=== PATIENT | female | born 1990 | race Hispanic/Latino ===

== ENCOUNTER 2017-07-15 07:07 | Day surgery (SDC) | payer OTHER ==
[2017-07-08 13:31] VITALS: BMI 22.4
[2017-07-15 08:18] LABS: MEAN CELL VOLUME 91.8 fl (81.0-99.0); MEAN CORPUSCULAR HEMOGLOBIN 29.9 pg (27.0-31.0); MEAN CORPUSCULAR HGB CONC 32.6 g/dL (33.0-37.0); RBC 4.36 Mil/uL (3.80-5.20); WHITE BLOOD COUNT 6.9 K/uL (4.8-10.8)
[2017-07-15] MEDS ORDERED: Ferric Subsulfate Sol(60 mL) ONE (08:34)
[2017-07-15] MEDS ORDERED: Propofol 10 mg/ml Inj (20 ML) ONE (08:34)
[2017-07-15] MEDS ORDERED: Midazolam 2 MG/2 ML VIAL ONE (08:34)
[2017-07-15] MEDS ORDERED: Succinylcholine 200 mg/10 ml Inj IV ONE (08:35)
[2017-07-15] MEDS ORDERED: Lactated Ringer's 1,000 ML IV ONE ×2 (09:25→11:05)
[2017-07-15] MEDS ORDERED: Dexamethasone 4 mg/1 ml ONE (09:49)
--- NOTE | 2017-07-15 09:59 | HP ---
HISTORY OF PRESENT ILLNESS: This is a 27-year-old G0 who reports that she has had the Janet placed in 07/2016 and usually has monthly periods with the Janet; however, has been bleeding for about 2 months straight, bleeding started 05/02/2017. Reports that the bleeding stopped for a few days and then she started bleeding again on 07/12/2017. The patient reports bad cramps with the periods with the Janet. The patient would like the Jnaet removed and LILETTA placed. The Janet could not be removed in the office. The IUD string was not seen and the patient was very uncomfortable during the attempts of trying to remove the Janet in the office, so the patient is scheduled today for Janet to be removed, a hysteroscopy to evaluate the lining of the uterus, and LILETTA placement. PAST MEDICAL HISTORY: Healthy. MEDICATIONS: Janet since 07/2016. PAST SURGICAL HISTORY: None. FAMILY HISTORY: Father , was diagnosed with hypertension. Maternal grandmother with ovarian cancer. Maternal great aunt x3 with ovarian cancer. SOCIAL HISTORY: The patient denies smoking. She reports she drinks 1-2 drinks a few times a week and denies illicit drug use. History of monthly periods. The patient reports an abnormal Pap smear in 07/2014 with positive HPV. She had a colpo, which was okay per the patient. In 07/2015, the patient's Pap was negative. The patient denies any STDs and reports that the Janet was placed on 08/12/2016. ALLERGIES: CEFZIL CAUSES HIVES. PHYSICAL EXAMINATION: VITAL SIGNS: Afebrile and vital signs are stable. GENERAL: The patient appears comfortable. ABDOMEN: Soft and nontender. In the office, her speculum exam revealed that the IUD strings were not visible. ASSESSMENT AND PLAN: This is a 27-year-old G0 with irregular bleeding with the Janet and would like the Janet removed. The Janet was not able to be removed in the office and so the patient is scheduled today for the Janet to be removed, hysteroscopy to evaluate the uterine lining, and LILETTA placement. Joanie Wood MD [facility] # [id number]
[2017-07-15] MEDS ORDERED: Oxycodone/Acetaminophen 5/325 mg Tab PO PRN (10:41)
[2017-07-15 11:03] VITALS: RESP 18
[2017-07-15 13:25] VITALS: BP 113/70; PULSE 68; TEMP 97.8; O2SAT 100
--- NOTE | 2017-07-15 14:19 | OP ---
PROCEDURE DATE: 07/15/2017 PREOPERATIVE DIAGNOSIS: This is a 27-year-old G0 with irregular bleeding with Janet in place. POSTOPERATIVE DIAGNOSIS: Endometrial polyps. PROCEDURE: Cervical dilation, hysteroscopic polypectomy with MyoSure LITE and LILETTA insertion. OPERATIVE FINDINGS: An anteverted uterus sounded to 7 cm. On hysteroscopy, both ostia were visualized and two polyps were seen in the lower uterine segment of the uterus, one on the right side coming from the anterior wall and the other on the left side from posterior/ lateral wall. SURGEON: Joanie Wood MD TYPE OF ANESTHESIA: General anesthesia with LMA. ANESTHESIA ADMINISTERED BY: Dr. Oh. COMPLICATIONS: None. DEFICIT: 700 mL. ESTIMATED BLOOD LOSS: Minimal. DESCRIPTION OF PROCEDURE: The patient was taken to the operating room with IV running and was placed under general anesthesia with LMA. A time-out was done. She was then prepped and draped in usual sterile fashion in the dorsal lithotomy position. A weighted speculum was placed in the posterior fornix of her vagina and a Oconnor speculum was placed in the anterior wall of the vagina. A single-tooth tenaculum was placed at the anterior lip of the cervix. The weighted speculum fell on the floor, so the Oconnor speculum was then placed in the posterior fornix of the vagina. The cervix was gently dilated. The Alessandro packing forceps were placed through the cervix and into the uterus and the Janet IUD was removed without difficulty. The cervix was then dilated to accommodate the MyoSure LITE. The hysteroscope was primed and placed through the cervix and into the uterus with the findings as noted above. The MyoSure LITE was used to remove the two endometrial polyps. The scope was then removed from the cavity. The LILETTA was then placed without difficulty. The strings were cut. The tenaculum was removed from the cervix. Manual pressure was applied to the tenaculum site for hemostasis with a sponge on a Ring forceps. AstrinGyn was then applied to the tenaculum sites for further hemostasis. All counts were correct. The patient tolerated the procedure well and was taken to the recovery room in stable condition. Joanie Wood MD [facility] # [id number] [place]
== END 2017-07-15 13:20 | disposition home or self-care (01) ==
LOC: H.OPSURG 07:07
PROVIDERS: ATTEND Obstetrics & Gynecology
DX: Z97.5 Presence of (intrauterine) contraceptive device (principal); N84.0 Polyp of corpus uteri; N84.1 Polyp of cervix uteri
CPT/HCPCS: 36415; 58300; 58558; 85027; 86850; 86900; 88304; 88305; J0330; J1100; J1885; J2001; J2250; J2704; J2765; J3010; J7030; J7120